=== PATIENT | female | born 1945 | race Two or more races ===

== ENCOUNTER 2024-08-14 08:15 | Day surgery (SDC) | payer OTHER, SELFPAY ==
[2024-08-14] MEDS: LOW STRENGTH ASPIRIN 81 MG PO (09:08)
[2024-08-14 10:10] LABS: ACT-LR - POC 310 Seconds (116-155)
[2024-08-14 10:28] LABS: ACT-LR - POC 237 Seconds (116-155)
--- NOTE | 2024-08-14 10:34 | ITS.CL.ANGIO ---
Clerical Secretary - Angioplasty
Angioplasty
Procedure Report:
LEFT HEART CATHETERIZATION
Date of Procedure: August 14, 2024
Procedures performed:
1: PCI of the right coronary artery with placement of 2 overlapping drug-eluting stents (2.25 x 38 mm [place] and 2.5 x 15 mm [place]leton overlapping) in the proximal and mid vessel with post dilation at high pressure using a 2.25 mm noncompliant balloon
distally and a 2.5 mm noncompliant balloon in the mid and proximal portion of the overlapping stents
2: Left ventricular hemodynamic assessment
Primary Streetcar Motorman: Myself
INDICATION: The patient is a 78-year-old woman with a past medical history significant for prior STEMI on 07/29/2024 at [facility] where she underwent primary angioplasty of the culprit OM1 occlusion. She was found at that time to have
severe diffuse small vessel right coronary artery disease and presents for staged PCI of the right coronary artery today.
ACCESS: The patient was prepped and draped in usual sterile fashion. A 6 Malawian sheath was placed in the right radial artery using the Seldinger over the wire technique.
HEMODYNAMIC FINDINGS (mmHg):
LV(s/d,EDP): 138/8, 16
Ao(s/d,m): 138/64, 94
ANGIOGRAPHIC FINDINGS:
Single-plane Left Ventriculography in SHEEHAN Projection: Not done
Coronary Angiography:
Dominance: Right single injection of the left was performed prior to PCI of the RCA
Left Main: Normal
Left Anterior Descending: The LAD is a medium caliber vessel that has heavy proximal calcification with only mild diffuse luminal irregularities and SARAH-3 distal flow.
Left Circumflex: Left circumflex is a medium caliber vessel that gives rise to a very high first obtuse marginal branch that was treated as the culprit in her index STEMI presentation. The true ostium of the circumflex has mild 20 to 30% disease
that involves both the OM1 takeoff as well as the continuation of the distal circumflex. The previously placed OM1 stent is widely patent. The ostium of the OM1 has a residual 70% stenosis which appears largely unchanged from postintervention at
[facility] performed on July 29, 2024. The distal circumflex also appears unchanged with normal flow in all vessels and no clear focal obstructive disease.
Right Coronary: The right coronary artery is a small caliber vessel that has diffuse long 50 to 80% disease extending from the proximal vessel to the acute margin. There is normal distal flow and a small caliber posterior descending artery.
Percutaneous Coronary Intervention (PCI): The patient was pretreated with oral aspirin and Plavix. Unfractionated heparin was given. A 6 Malawian JR4 guiding catheter was used to engage the right coronary artery. A Hi-Torque floppy wire was easily
advanced across the long area of disease into the distal vessel. Predilation was performed with a 2.0 x 30 mm balloon and distal to proximal fashion. Next a 2.25 x 38 mm Sly drug-eluting stent was positioned and deployed distally at 14 joy. A
2.25 mm diameter noncompliant balloon was used to post dilate the stented segment at 16 joy. Next a 2.5 x 15 mm Sly drug-eluting stent was placed in overlapping portion with the previous stent to cover the proximal disease. This was postdilated
with a 2.5 mm diameter noncompliant balloon at 16 joy. The 2.5 mm balloon was used to post dilate the more proximal portion of the distal stent and overlap segment as well at 16 joy.
FINAL RESULT: 0% in-stent residual stenosis with an excellent angiographic result and SARAH-3 flow in all distal vessels.
Fluoroscopy Time (min): 13
Radiation Dose (mGy): 221
DAP (Gy.cm2): 12
Closure device: None. A TR band was applied for hemostasis at the right wrist.
Complications: None.
ASSESSMENT:
1: Successful PCI of the right coronary artery with placement of 2 overlapping drug-eluting stents as described above.
2: Unchanged left coronary angiographic findings with a widely patent previously placed OM1 stent and residual ostial disease. Given the small caliber of this vessel and the adjacent disease in the true circumflex ostium, I would not want to
perform intervention unless she was clearly having symptoms or a large territory of ischemia could be demonstrated. This would be technically challenging due to the small caliber of the vessels and relationship to the distal left main and distal
circumflex.
CONCLUSIONS and RECOMMENDATIONS:
1: Routine post drug-eluting stent medical therapy and monitoring. Uninterrupted dual antiplatelet therapy with aspirin Plavix for a year and aspirin 81 mg daily uninterrupted for life.
2: Enroll in cardiac rehab with close clinical follow-up as scheduled.
Vicky Augustin M.D.
--- NOTE | 2024-08-14 11:24 | PTCARENOTE ---
dr ziegler at bedside and visulizied some fullness in rt arm above rt radial band. dr ziegler placed a second r band above 1st radial band. will begin to remove air at same time approx 1230.and continue to monitor rt wrist
--- NOTE | 2024-08-14 12:02 | PTCARENOTE ---
dr becerra at bedside and removed 2nd tr band. rt arm soft, no hematoma
[2024-08-14] MEDS: TYLENOL 650 MG PO (14:10)
--- NOTE | 2024-08-14 15:34 | PTCARENOTE ---
EMISSIONS REPAIR TECHNICIAN drea alcocer to see pt. r band is now removed w steril dressing applied. sl echomosis, no hematoma to wrist. discomfort has lessend per pt.
--- NOTE | 2024-08-14 16:14 | PTCARENOTE ---
dr boss at bedside speaking w pt and son r/t rt wrist discomfort. us ordered . pt and son understand discharge instructions . no hematoma . pain is now down to 4/ 1 0/ previously 8/10. pt states tylenol and ice helped.
--- NOTE | 2024-08-14 16:34 | W.PN.UPDATE ---
Addendum entered and electronically signed by SHANELL Hernandez 08/14/24 17:23:
u/s negative for HT or PSA, results reviewed with Dr. Augustin and Dr. Minaya. She is stable for d/c home.
Original Note:
Update Note
Progress Note Update
78 yo female s/p staged PCI RCA x 2 BRITTA (same day). She denies cp, sob, thomas diet, voiding, amb w/o dizziness, R Rad site with some ecchymosis and tenderness, slightly improved after TR band removed, Tylenol and ice application but beer still runner compounder. We
will check u/s to r/o PSA of radial artery. She will continue DAPT ASA/Plavix. Cardiac rehab c/s. Activity restrictions reviewed. She will f/u Dr. Augustin in 2-4 weeks. If u/s R rad site negative plan for d/c home. Reviewed plan with Dr. Augustin and
had Dr. Minaya evaluate radial site. She also noted a small lump in her upper right back/spine which is tender but appears unrelated to the procedure today.
Procedures performed:
1: PCI of the right coronary artery with placement of 2 overlapping drug-eluting stents (2.25 x 38 mm Sly and 2.5 x 15 mm Sly overlapping) in the proximal and mid vessel with post dilation at high pressure using a 2.25 mm noncompliant balloon
distally and a 2.5 mm noncompliant balloon in the mid and proximal portion of the overlapping stents
2: Left ventricular hemodynamic assessment
--- NOTE | 2024-08-14 16:35 | PTCARENOTE ---
Received report on pt for shift relief. Vital signs obtained prior to 1628 can not be verified by this user. Pt states she is pain free on right forearm (above radial dressing site) as long as it is not touched or pressed on. Right forearm soft. No
bleeding or hematoma noted. Awaiting ultrasound. Will continue to monitor.
--- NOTE | 2024-08-14 16:41 | PTCARENOTE ---
Call placed to cardiac rehab to make them aware of need to be seen by cardiac rehab prior to discharge.
--- NOTE | 2024-08-14 16:42 | PTCARENOTE ---
manufacturing technologist at pt bedside performing ultrasound. Pt's son at pt bedside.
--- NOTE | 2024-08-14 16:49 | PTCARENOTE ---
java tech lead states procedure complete. Tiffanie FREEDMAN, cardiac rehab staff, at pt bedside speaking to pt and pt's son.
--- NOTE | 2024-08-14 16:52 | PTCARENOTE ---
Dr Minaya made aware right radial ultrasound is complete. Dr Minaya states if there is no pseudoaneurysm, pt is ok for discharge. Awaiting ultrasound results.
--- NOTE | 2024-08-14 17:16 | PTCARENOTE ---
Per Dr Rodrigues, radiologist, pt's right radial ultrasound shows no psuroaneurysm.
== END 2024-08-14 17:30 | disposition home or self-care (01) ==
LOC: CATH 08:15
PROVIDERS: ATTENDING PHYSICIAN Internal Medicine Interventional Cardiology
DX: I25.10 Atherosclerotic heart disease of native coronary artery without angina pectoris (principal); I21.3 ST elevation (STEMI) myocardial infarction of unspecified site; I25.84 Coronary atherosclerosis due to calcified coronary lesion; Z79.82 Long term (current) use of aspirin; Z95.5 Presence of coronary angioplasty implant and graft
CPT/HCPCS: 85347; 93005; 93926; C1725; C1769; C1874; C1887; C1894; C9600; Q9967